=== PATIENT | male | born 1995 | race Hispanic/Latino ===

== ENCOUNTER 2021-11-01 18:10 | Emergency (ER) | payer BC ==
[~2021-11-01] VITALS: Ht 175.3 cm; Wt 83.6 kg
[2021-11-01] MEDS ORDERED: CEPHALEXIN500 MG PO (18:25)
[2021-11-01] MEDS ORDERED: TETANUS/DIPHTHERIA TOX ADULT 0.5 ML SYR ONE (18:40)
[2021-11-01] MEDS ORDERED: TETANUS/DIPHTHERIA TOX ADULT 0.5 ML SYR IM ONE (18:45)
== END 2021-11-01 18:41 | disposition home or self-care (01) ==
LOC: FSED 18:23
DX: S61.210A Laceration without foreign body of right index finger without damage to nail, initial encounter (principal); Z23 Encounter for immunization; W45.8XXA Other foreign body or object entering through skin, initial encounter; Z88.0 Allergy status to penicillin
CPT/HCPCS: 90471; 90714; 96372; 99283

== ENCOUNTER 2021-11-09 12:10 | Emergency (ER) | payer BC ==
[~2021-11-09] VITALS: Ht 172.7 cm; Wt 81.6 kg
[~2021-11-09 12:10] MED LIST: CEPHALEXIN500 MG PO
== END 2021-11-09 14:00 | disposition home or self-care (01) ==
LOC: FSED 13:57
DX: Z48.02 Encounter for removal of sutures (principal)
CPT/HCPCS: 99282